=== PATIENT | male | born 1950 | race African-American/Black ===

== ENCOUNTER 2016-09-06 06:01 | Day surgery (SDC) | payer MEDICARE, BC ==
[~2016-09-06] VITALS: Ht 177.8 cm; Wt 92.7 kg
[~2016-09-06 06:01] MED LIST: ALTACE10 MG PO; CHLORTHALIDONE25 MG PO; GLUCOPHAGE500 MG PO; KLOR-CON M2020 MEQ PO; LIPITOR80 MG PO; NORVASC10 MG PO; SLOW-MAG 64 MG64 MG PO; TOPROL XL100 MG PO; VITAMIN B-121000 MCG PO; VITAMIN D31000 UNIT PO; ZYLOPRIM100 MG PO
[2016-09-06] MEDS ORDERED: AUGMENTIN 875-11 TAB PO (07:18)
[2016-09-06] MEDS ORDERED: LOSARTAN POTASS25 MG PO (07:19)
[2016-09-06 07:24] VITALS: BP 165/92; Ht 177.8 cm; Wt 92.7 kg
[2016-09-06 07:26] LABS: BASOPHILS 0.5 % (0.0-2.0); EOSINOPHILS 2.1 % (0-7); HEMATOCRIT 43.8 % (42.0-54.0); HEMOGLOBIN 15.1 g/dL (13.5-17.5); IMMATURE GRANULOCYTES 0.3 % (0-5); MCH 32.9 pg (26.0-34.0); MCHC 34.5 g/dL (31.0-37.0); MCV 95.4 fL (80.0-100.0); MEAN PLATELET VOLUME 9.9 fL (7.4-10.4); MONOCYTES 14.7 % (2-11); NEUTROPHILS 66.4 % (40-80); PLATELET COUNT 251 10x3/uL (130-400); RBC 4.59 10x6/uL (4.20-6.10); RDW 14.6 % (11.5-14.5); WBC 3.9 10x3/uL (4.8-10.8)
[2016-09-06 07:45] LABS: CALC OSMOLALITY 280 mosm/kg (275-300); CALCIUM 9.7 mg/dL (8.5-10.1); CARBON DIOXIDE 28.5 mmol/L (21.0-32.0); CHLORIDE - SERUM 99 mmol/L (98-107); CREATININE - SERUM 0.8 mg/dL (0.6-1.3); GLUCOSE 125 mg/dL (74-106); POTASSIUM - SERUM 4.5 mmol/L (3.5-5.1); SODIUM 140 mmol/L (136-145); UREA NITROGEN 14 mg/dL (7-18); eGFR NON AFRICAN AMERICAN > 90 mL/min (90-120)
--- NOTE | 2016-09-06 10:17 | NUR ---
1015 ASSISSTED UP TO BR. VOIDS AND PASSING FLATUS. IN ROOM.
--- NOTE | 2016-09-06 10:41 | NUR ---
1040 FL SOUP DIET SERVED.
--- NOTE | 2016-09-06 11:03 | NUR ---
1100-PT DOING WELL, UP TO BATHROOM VOIDED X 2 TOLERATED TRAY WELL, IV DISCONTINUED WITH CATHETER INTACT WILL CONTINUE TO MONITOR
--- NOTE | 2016-09-06 11:12 | NUR ---
1110-DISCHARGE INSTRCUTIONS GIVEN AND WENT OVER WITH PATIENT. PT STATES UNDERSTANDING AND DENIES ANY NEEDS OR CONCERN. COPY HANDED TO HIM AND AT BEDSIDE. PT ESCORTED OUT VIA WHEELCHAIR IN STABLE CONDITION
--- NOTE | 2016-10-07 09:40 | HP ---
PATIENT: YUKI GALLAGHER MEDICAL RECORD: [id number] ACCOUNT: [id number] LOCATION:DTARYN : 48 ADMISSION DATE: 09/06/16 HISTORY AND PHYSICAL EXAMINATION CHIEF COMPLAINT: History of colon polyps. HISTORY OF PRESENT ILLNESS: The patient has a history of multiple colon polyps. He has had no abdominal pain. No rectal bleeding. No abdominal tenderness. He is here for surveillance colonoscopy. ALLERGIES: NEOSPORIN. HOME MEDICATIONS: Augmentin due to a knee replacement, Lipitor, losartan, metoprolol and metformin. PAST MEDICAL AND SURGICAL HISTORY: Knee replacement, arthritis, noninsulin-dependent diabetes mellitus and hypertension. REVIEW OF SYSTEMS: Negative for CVA or seizures. Negative for renal disease or hepatitis. Review of systems is negative other than as is described above. PHYSICAL EXAMINATION: GENERAL: The patient does not appear acutely ill. He does not appear chronically ill. VITAL SIGNS: Reviewed. HEAD: External ears appear normal. EYES: Extraocular movements are intact. NECK: Trachea is midline. CHEST: No intercostal retractions. PULMONARY: Nonlabored, no stridor. ABDOMEN: Nontender. EXTREMITIES: No peripheral cyanosis. INTEGUMENT: No rash, no ulcerations. IMPRESSION: History of colon polyps. PLAN: Will be surveillance colonoscopy. TRANSINT:[id number] Voice Confirmation ID: [id number] DOCUMENT ID: [id number] KATE HOOD MD at 0940 CC: [id number] DICTATION DATE: 09/06/16 0847 FOREST MANAGER: 09/06/[address] [facility] 09/06/16 [place] [id number]
--- NOTE | 2016-10-07 09:40 | OP ---
PATIENT NAME: YUKI GALLAGHER MEDICAL RECORD: [id number] :48 LOCATION:D.OPS ADMISSION DATE: SURGEON: KATE HOOD MD DATE OF OPERATION: 09/06/2016 PREOPERATIVE DIAGNOSIS: History of colon polyps in need of a surveillance colonoscopy. POSTOPERATIVE DIAGNOSES: 1. History of colon polyps in need of a surveillance colonoscopy. 2. Mild left-sided diverticulosis. 3. Pedunculated 1.5 cm polyp at 35 cm. 4. Sessile polyp, 9 mm x 8 mm, at 10 cm. 5. Enlarged internal hemorrhoids. PROCEDURES: 1. Total colonoscopy to cecum. 2. Snare polypectomy. 3. Epinephrine injection through a sclerotherapy needle at the base of the polyp. 4. Endoscopic tattooing with 3 cc of Rosibel ink. 5. Hot biopsy forceps polypectomy technique times 1. SURGEON: Kate Hood MD. FIELD HOCKEY COACH: None. BLOOD LOSS: Minimal. ANESTHESIA: General. COMPLICATIONS: None. The risks, possible complications and alternatives to procedure were explained to the patient. He elects to proceed. OPERATIVE COURSE: The patient was conveyed in the endoscopy suite electively on 09/06/2016. IV sedation was induced by the anesthesia staff. The patient was placed in the Singh position. A digital rectal examination was performed. A colonoscope was inserted through the anus. It was easily advanced to the cecum. The prep was adequate. I slowly withdrew the endoscope. A combination of normal imaging as well as narrow band imaging were utilized. I dragged the folds. The pullback was greater than a 14-minute pullback. I identified the pedunculated polyp. I advanced a sclerotherapy needle. I injected 4 cc of epinephrine into the stalk of the polyp for hemostasis. I then withdrew the sclerotherapy needle. I advanced a endoscopic snare. I was able to snare the stalk on the polyp. A combination of cautery and then cut was used to amputate the polyp. The snare was removed. I advanced an endoscopic retrieval net. I grasped the polyp. It was then removed in its entirety. I readvanced the endoscope to 35 cm. I advanced the sclerotherapy needle. A submucosal injection of 3 cc of Rosibel ink was used to tattoo the area so that it would be easier to identify on subsequent endoscopies. I then slowly withdrew the endoscope. I withdrew it into the rectum. I noted OPERATIVE REPORT [id number] GALLAGHERYUKI MAZARIEGOS another polyp at 10 cm. This was grasped and removed in its entirety utilizing the hot biopsy forceps polypectomy technique. A retroflexed view was obtained in the rectum. I then unretroflexed the scope and removed it under direct vision. I will see the patient in my office in 2-3 weeks. I will plan for his next surveillance colonoscopy to be in 3 years. TRANSINT:[id number] Voice Confirmation ID: [id number] DOCUMENT ID: [id number] KATE HOOD MD at 0940 CC: SALBADOR LEON [id number] DICTATION DATE: 09/06/1659 DRUGLESS DOCTOR: 09/06/16 1825 [facility] 09/06/16 [facility] [address] [place] [address]
== END 2016-09-06 11:10 | disposition home or self-care (01) ==
LOC: D.OPS 06:01
PROVIDERS: Anesthesiology
DX: Z12.11 Encounter for screening for malignant neoplasm of colon (principal); K63.5 Polyp of colon; K57.30 Diverticulosis of large intestine without perforation or abscess without bleeding; K64.8 Other hemorrhoids; Z86.010 Personal history of colon polyps; I10 Essential (primary) hypertension; E11.9 Type 2 diabetes mellitus without complications; M19.90 Unspecified osteoarthritis, unspecified site; Z96.659 Presence of unspecified artificial knee joint; Z79.84 Long term (current) use of oral hypoglycemic drugs; Z79.2 Long term (current) use of antibiotics; Z79.899 Other long term (current) drug therapy; Z88.3 Allergy status to other anti-infective agents